=== PATIENT | male | born 1970 | race Two or more races ===

== ENCOUNTER 2016-10-25 21:47 | Emergency (ER) | payer SELFPAY ==
[2016-10-25 21:53] VITALS: BP 134/81; RESP 18; TEMP 98.1; O2SAT 98
[2016-10-25] MEDS ORDERED: Lidocaine 1% Inj (20ml) ONE (22:03)
--- NOTE | 2016-10-25 22:20 | ED PDOC ---
HPI: Skin/Bite Injury Time Seen by Provider: 10/25/16 21:49 Chief Complaint (Nursing): Finger,Hand,&Wrist Chief Complaint (Provider): Laceration History Per: Patient Additional Complaint(s): pt is a 46 yo male, no PMH, presents to ED for eval of right thumb laceration after slipping with a kitchen knife. Keli is UTD Past Medical History Reviewed: Nursing Documentation, Vital Signs Vital Signs: Last Vital Signs Temp 98.1 F 10/25/16 21:51 Pulse 107 H 10/25/16 21:51 Resp 18 10/25/16 21:51 BP 134/81 10/25/16 21:51 Pulse Ox 98 10/25/16 21:51 - Medical History PMH: No Chronic Diseases - Surgical History Surgical History: No Surg Hx - Family History Family History: States: No Known Family Hx - Living Arrangements Living Arrangements: With Family - Social History Current smoker - smoking cessation education provided: No Alcohol: Social Drugs: Denies - Allergies Allergies/Adverse Reactions: Allergies Allergy/AdvReac Type Severity Reaction Status Date / Time No Known Allergies Allergy Verified 10/25/16 21:51 Review of Systems ROS Statement: Except As Marked, All Systems Reviewed And Found Negative Skin: Positive for: Other (laceration) Physical Exam - Reviewed Nursing Documentation Reviewed: Yes Vital Signs Reviewed: Yes - Physical Exam Appears: Positive for: Well, Non-toxic, No Acute Distress Head Exam: Positive for: ATRAUMATIC, NORMAL INSPECTION, NORMOCEPHALIC Skin: Positive for: Normal Color, Warm, DRY Cardiovascular/Chest: Positive for: Regular Rate, Rhythm Respiratory: Positive for: CNT, Normal Breath Sounds Extremity: Positive for: Normal ROM, Other (3 cm laceration over fingertip pulp right thumb, (+) active bleed) Neurologic/Psych: Positive for: Alert - ECG O2 Sat by Pulse Oximetry: 98 Medical Decision Making Medical Decision Making: Wound repaired and dressed by data analyst report writer. Wound care discussed. Disposition - Clinical Impression Clinical Impression: Laceration - Patient ED Disposition Is Patient to be Admitted: No - Disposition Disposition: Routine/Home Disposition Time: 22:25 Condition: STABLE Instructions: Laceration (ED) Laceration - Laceration Repair No standard instances Wound Length (In cm): 36 in Description Of Wound: Linear Wound Cleansed With: Sterile Saline Anesthesia: Lidocaine 1% Wound Examination: Irrigated With Saline Wound Closure: Suture Suture Technique And Material Used: Running (3), Nylon (5.0) Wound Complexity: Simple
[2016-10-25 22:39] VITALS: PULSE 87
== END 2016-10-25 22:33 | disposition home or self-care (01) ==
LOC: H.ER 21:47
DX: S61.011A Laceration without foreign body of right thumb without damage to nail, initial encounter (principal); W26.0XXA Contact with knife, initial encounter; Y92.000 Kitchen of unspecified non-institutional (private) residence as the place of occurrence of the external cause